=== PATIENT | female | born 1950 | race Two or more races ===

== ENCOUNTER 2022-07-04 08:03 | Outpatient (CLI) | payer MEDICARE, SELFPAY ==
--- NOTE | ~2022-07-04 | DEXA_ITS ---
Bone Density Report Name: VIRGEN WHITMORE Age: 71 Sex: Female Ethnicity: White Date of : 1950 Indication: postmenopausal; screening for osteoporosis; Referring Provider: MAGALI PALAFOX Study: Bone densitometry was performed. Exam Date: July 04, 2022 Accession number: [id number] Bone Density: Region BMD T-score Z-score Classification AP Spine(L1-L4) 0.995 -0.5 1.8 Normal Femoral Neck (Left) 0.838 -0.1 1.9 Normal Total Hip (Left) 1.005 0.5 2.2 Normal Femoral Neck (Right) 0.876 0.2 2.3 Normal Total Hip (Right) 1.029 0.7 2.4 Normal Total Hip Mean 1.017 0.6 2.3 Normal World Health Organization criteria for BMD impression classify patients as: Normal (T-score at or above -1.0), Osteopenia (T-score between -1.0 and -2.5), or Osteoporosis (T-score at or below -2.5). 10-year Fracture Risk: FRAX not reported because: All T-scores for Spine Total, Hip Total, Femoral Neck at or above -1.0 Clinical Information Provided by Patient: Has used the following medications: Vitamin D Patient maximum height was 61.5 Menopause Age: 53 No regular weight bearing exercise Does not regularly consume dairy products Onset of menses at age 9 Number of children 2 Impression: The patient has normal bone mass. Discussion: BONE DENSITY IS ABOVE THE MINIMUM DESIRABLE LEVEL AT ALL SKELETAL SITES TESTED. This patient?s bone mineral density is above the minimum desirable level (T-score -1.0 or better) at all sites measured. The patient should follow a healthful lifestyle (good nutrition with adequate calcium and vitamin D, and appropriate weight-bearing exercise). Follow-Up: Consider repeating this study in 5 years or sooner if there is some new clinical indication. Reported by: LUIS on 07/04/2022 8:30:00 AM. Reviewed, dictated and finalized at location AJessika MEIER
== END 2022-07-04 08:04 | disposition home or self-care (01) ==
PROVIDERS: Visit Provider Obstetrics & Gynecology
DX: Z78.0 Asymptomatic menopausal state (principal)
CPT/HCPCS: 77080

== ENCOUNTER 2022-07-07 07:38 | Day surgery (SDC) | payer MEDICARE, SELFPAY ==
[2022-05-28 09:51] VITALS: BMI 33.2
[2022-07-01 09:35] VITALS: BMI 30.3
--- NOTE | 2022-07-04 13:37 | P.HP_ITS ---
History of Present Illness History of Present Illness Consent: Risks, benefits, and alternatives have been discussed and questions answered. Patient agrees to proceed with procedure. Chief complaint: History of colon polyps Narrative: Rhonda Gomes is a 71 year old female referred for colon cancer screening. She has history of colon polyps. She had 2 Adenomatous polyps removed 7 years ago, and had had prior polyps Review of Systems Review of Systems: All systems reviewed & are unremarkable except as noted in HPI and below PMFSH Past Medical History Medical History Elevated lipids H/O vaginal delivery Hypertension Migraines Pneumonia Surgical History Surgical History H/O section H/O plastic surgery History of tubal ligation Hx of bilateral breast reduction surgery [place] teeth removed Family History Family History Grandparent Diabetes mellitus Cerebrovascular accident Mother Diabetes mellitus Family history of hypercholesterolemia Hypertension Sibling Hypertension Other Family history of malignant neoplasm Social History Social History Smoking status: Never smoker Alcohol intake: current Substance use: never Substance use type: does not use Living arrangements: alone Spiritual care concerns: No Meds Home Medications and Allergies Home Medications Medication Instructions Recorded Confirmed Type ascorbate calcium (vitamin C) 500 500 mg PO DAILY 06/30/19 07/07/22 History mg tablet cholecalciferol (vitamin D3) 50 2,000 unit PO DAILY 06/30/19 07/07/22 History mcg (2,000 unit) tablet omega-3 fatty acids 1,000 mg 1,000 mg PO DAILY 06/30/19 07/07/22 History capsule (Fish Oil Concentrate) potassium chloride 10 mEq 10 meq PO DAILY 06/30/19 07/07/22 History tablet,extended release (Klor-Con) vitamin B complex (B 1 tablet PO DAILY 06/30/19 07/07/22 History Complex-Vitamin B12 tablet) magnesium 30 mg tablet 30 mg PO DAILY 04/15/22 07/07/22 History zinc acetate 50 mg (zinc) capsule 50 mg PO DAILY 04/15/22 07/07/22 History (Galzin) Allergies Allergy/AdvReac Type Severity Reaction Status Date / Time No Known Allergies Allergy Verified 07/07/22 08:22 Exam Resp: Auscultation: clear to auscultation bilaterally Cardio: Rate: regular rate Rhythm: regular rhythm GI: GI Palp: Yes Soft to palpation and No Tenderness to palpation present (GI) Assessment and Plan Assessment and plan (1) Colon cancer screening: Code(s): Z12.11 - Encounter for screening for malignant neoplasm of colon Status: Acute Assessment and Plan: Colonoscopy with possible biopsy or polypectomy or cautery or injection of substances.
[2022-07-07 08:25] VITALS: BP 126/82; PULSE 67; RESP 20; TEMP 36.7; O2SAT 100
[2022-07-07] MEDS: LACTATED RINGERS 1,000 ML 150 ML IV CONT (08:39)
--- NOTE | 2022-07-07 08:47 | WPDANESEPPF ---
Anes - Initial Pre Proc Eval Procedure: Operation Date: 07/07/22 09:30 Proposed Procedures p Screening Colonoscopy - Jaren Bowman MD Date/Time: 07/07/22 08:47 Surgeon: Jaren Bowman MD Pre Op Diagnosis: History of colon polyps Patient Data Age: 71 Gender: F Height: 1.52 m Weight: 69 kg Last Vital Signs Temp 36.7 C 07/07/22 08:25 Pulse 67 07/07/22 08:25 Resp 20 07/07/22 08:25 BP 126/82 07/07/22 08:25 Pulse Ox 100 07/07/22 08:25 O2 Del Method Room Air 07/07/22 08:25 Allergies Allergy/AdvReac Type Severity Reaction Status Date / Time No Known Allergies Allergy Verified 07/07/22 08:22 Home Medications Medication Instructions Recorded Confirmed Type ascorbate calcium (vitamin C) 500 500 mg PO DAILY 06/30/19 07/07/22 History mg tablet cholecalciferol (vitamin D3) 50 2,000 unit PO DAILY 06/30/19 07/07/22 History mcg (2,000 unit) tablet omega-3 fatty acids 1,000 mg 1,000 mg PO DAILY 06/30/19 07/07/22 History capsule (Fish Oil Concentrate) potassium chloride 10 mEq 10 meq PO DAILY 06/30/19 07/07/22 History tablet,extended release (Klor-Con) vitamin B complex (B 1 tablet PO DAILY 06/30/19 07/07/22 History Complex-Vitamin B12 tablet) magnesium 30 mg tablet 30 mg PO DAILY 04/15/22 07/07/22 History zinc acetate 50 mg (zinc) capsule 50 mg PO DAILY 04/15/22 07/07/22 History (Galzin) Patient hx anesthesia problems: none Family hx anesthesia problems: none Results Review: All pre-operative results and documents have been reviewed as part of the pre-operative evaluation. [facility] Past Medical History Medical History Elevated lipids H/O vaginal delivery Hypertension Migraines Pneumonia Surgical History Surgical History H/O section H/O plastic surgery History of tubal ligation Hx of bilateral breast reduction surgery [place] teeth removed Family History Family History Grandparent Diabetes mellitus Cerebrovascular accident Mother Diabetes mellitus Family history of hypercholesterolemia Hypertension Sibling Hypertension Other Family history of malignant neoplasm Social History Social History Smoking status: Never smoker Alcohol intake: current Substance use: never Substance use type: does not use Living arrangements: alone Spiritual care concerns: No Anes - Eval Final PreProcedure Day of Procedure 07/07/22 08:47 Patient weight: overweight Heart: regular rate and rhythm Lungs: clear to auscultation Airway: Mallampati scale class II Neurological: alert and oriented Last oral intake: >/= 8 hours ASA classification: II Emergent: no Anesthetic plan: proceed Anesthesia type and monitoring: general GIVS and standard monitoring Results Review: All pre-operative results and documents have been reviewed as part of the pre-operative evaluation. Informed Consent: The patient's anesthetic plan and its attendant risks and benefits were discussed with the patient/family/POA. Questions were solicited and answers provided to the satisfaction of the patient/family/POA.
[2022-07-07 09:44] VITALS: BP 107/61; PULSE 60; RESP 16; O2SAT 100
[2022-07-07 09:54] VITALS: BP 124/84; PULSE 68; RESP 16; O2SAT 100
[2022-07-07 10:04] VITALS: BP 98/67; PULSE 59; RESP 18; O2SAT 100
--- NOTE | 2022-07-07 12:25 | WPDANESPN ---
Anes - Prog Note Post-Op Date/Time: 07/07/22 12:25 Cardiovascular status: normal Respiratory status: normal Airway patency: baseline Mental status: baseline Post-Op hydration status: normal Vital Signs: Last Vital Signs Temp 36.7 C 07/07/22 08:25 Pulse 59 L 07/07/22 10:04 Resp 18 07/07/22 10:04 BP 98/67 L 07/07/22 10:04 Pulse Ox 100 07/07/22 10:04 O2 Del Method Room Air 07/07/22 10:04 Pain Score (VAS): 0 I/O: Intake & Output 07/06/22 07/07/22 07/07/22 23:59 07:59 15:59 Intake Total 680 Balance 680 Patient Feedback: Patient satisfied with anesthetic care.
== END 2022-07-07 10:25 | disposition home or self-care (01) ==
PROVIDERS: Visit Provider Internal Medicine Gastroenterology
PROC: 0DJD8ZZ Inspection of Lower Intestinal Tract, Via Natural or Artificial Opening Endoscopic (ICD-10-PCS; CPT 45378; principal; 2022-07-07 09:30)
DX: Z12.11 Encounter for screening for malignant neoplasm of colon (principal)
CPT/HCPCS: 45378